=== PATIENT | male | born 1990 | race Caucasian/White ===

== ENCOUNTER 2020-08-16 14:26 | Emergency (ER) | payer OTHER ==
[~2020-08-16] VITALS: Ht 165.1 cm; Wt 95.1 kg
[2020-08-16] MEDS ORDERED: TRAZ-252 PO (15:47)
[2020-08-16 16:56] LABS: BASO # 0.1 10^3/uL (0.0-0.2); BASO % 0.6 % (0.0-1.0); EOS # 0.2 10^3/uL (0.0-0.5); EOS % 1.4 % (0.0-3.0); HEMATOCRIT 49.8 % (42.0-52.0); HEMOGLOBIN 16.6 g/dl (13.5-17.5); LYMPH # 2.9 10^3/uL (1.5-5.0); LYMPH % 25.3 % (24.0-44.0); MEAN CORPUSCULAR HEMOGLOBIN 30.9 pg (27.0-33.0); MEAN CORPUSCULAR HGB CONC 33.3 g/dl (32.0-36.5); MEAN CORPUSCULAR VOLUME 92.7 fl (80.0-96.0); MONO % 8.4 % (0.0-5.0); NEUTROPHILS # 7.3 10^3/uL (1.5-8.5); NEUTROPHILS % 63.9 % (36.0-66.0); PLATELET COUNT, AUTOMATED 330 10^3/uL (150-450); RED BLOOD COUNT 5.37 10^6/uL (4.30-6.10); WHITE BLOOD COUNT 11.5 10^3/uL (4.0-10.0)
[2020-08-16 17:38] LABS: ALT/SGPT 62 U/L (12-78); BILIRUBIN,DIRECT 0.2 MG/DL (0.0-0.2); BILIRUBIN,TOTAL 1.2 MG/DL (0.2-1.0); BLOOD UREA NITROGEN 15 MG/DL (7-18); CARBON DIOXIDE LEVEL 27 MEQ/L (21-32); CHLORIDE LEVEL 102 MEQ/L (98-107); CREATININE FOR GFR 1.16 MG/DL (0.70-1.30); FREE T4 1.09 NG/DL (0.76-1.46); GLOMERULAR FILTRATION RATE > 60.0 (>60); GLUCOSE, FASTING 84 MG/DL (70-100); POTASSIUM SERUM 4.1 MEQ/L (3.5-5.1); SODIUM LEVEL 136 MEQ/L (136-145); TOTAL PROTEIN 8.5 GM/DL (6.4-8.2)
--- NOTE | 2020-08-16 17:41 | REP ---
INDICATION: "lump throat, pain to R ear" since May. COMPARISON: None. TECHNIQUE: Three AP and lateral views soft tissues neck. FINDINGS: The region of the adenoids is not visualized. There is no prevertebral soft tissue swelling. A tiny calcific density along the anterior margin of the C2-3 disc space is probably a ligamentous calcification. The epiglottis is not enlarged. Hermleigh tonsils may be mildly enlarged. The airway is widely patent. IMPRESSION: Adenoid region not visualized. Possible mild enlargement of the palatine tonsils. <Electronically signed by Pilo Estrada > 08/16/20 [id number]
[2020-08-16 18:23] VITALS: BP 131/78
--- NOTE | 2020-08-19 07:07 | ED PDOC ---
Post-Departure Follow-Up abi [email or web address] faxed soft tissue xray for fu Toribio Arana MD Aug 19, 2020 07:07
== END 2020-08-16 18:24 | disposition home or self-care (01) ==
LOC: M ED 14:26
DX: H92.01 Otalgia, right ear (principal); J02.9 Acute pharyngitis, unspecified; I10 Essential (primary) hypertension

== ENCOUNTER → 2021-02-26 | Outpatient (CLI) | payer OTHER ==
[~2021-02-26] MED LIST: ISOVUE-370 76% 100ML VIAL As Ordered ONE; TRAZ-252 PO
--- NOTE | 2021-02-26 09:43 | REPVR ---
PROCEDURE INFORMATION: Exam: CT Neck With Contrast Exam date and time: 02/26/2021 8:43 AM Age: 30 years old Clinical indication: Mass, lump, or swelling in neck; Right; Additional info: Swelling, mass, lump TECHNIQUE: Imaging protocol: Computed tomography images of the neck with contrast. Radiation optimization: All CT scans at this facility use at least one of these dose optimization techniques: automated exposure control; mA and/or kV adjustment per patient size (includes targeted exams where dose is matched to clinical indication); or iterative reconstruction. Contrast material: ISOVUE 370; Contrast volume: 75 ml; Contrast route: INTRAVENOUS (IV); COMPARISON: CR Soft Tissue Neck 08/16/2020 4:47 PM FINDINGS: Nasopharynx: Unremarkable. Oropharynx: Unremarkable. No significant tonsillar enlargement. Hypopharynx: Effacement the left piriform sinus. Larynx: Unremarkable. Normal epiglottis. Retropharyngeal space: Unremarkable. Submandibular/Parotid glands: Normal. Glands are normal in size. Thyroid: Normal. No enlarged or calcified nodules. Lymph nodes: Mild nonspecific borderline enlarged bilateral jugular lymph nodes. Trachea: Visualized trachea is unremarkable. Lungs: Unremarkable as visualized. Bones/joints: Unremarkable. No acute fracture. Soft tissues: Unremarkable. No significant soft tissue swelling. IMPRESSION: No acute findings. Electronically signed by: Juanito Anthony On 02/26/2021 09:42:47 AM
== END ==
LOC: M RAD 08:02
PROVIDERS: ATTEND Otolaryngology
DX: R22.1 Localized swelling, mass and lump, neck (principal)
CPT/HCPCS: 70491; Q9967